=== PATIENT | male | born 1980 | race Caucasian/White ===

== ENCOUNTER 2023-10-26 22:39 | Emergency (ER) | payer SELFPAY ==
[~2023-10-26] VITALS: Ht 177.8 cm; Wt 68.0 kg
[2023-10-26 22:55] VITALS: BP 138/73; PULSE 54; RESP 18; TEMP 97.2; O2SAT 97
[2023-10-26] MEDS: FLUORESCEIN OPTH STRIP 1 MG OP ONE (23:40)
[2023-10-26] MEDS ORDERED: OFLO5SOL LEFT EYE (23:50)
== END 2023-10-26 23:57 | disposition home or self-care (01) ==
LOC: MED 22:39
DX: S05.02XA Injury of conjunctiva and corneal abrasion without foreign body, left eye, initial encounter (principal); Z79.899 Other long term (current) drug therapy; X58.XXXA Exposure to other specified factors, initial encounter; Y92.89 Other specified places as the place of occurrence of the external cause; Y93.89 Activity, other specified; Y99.8 Other external cause status
CPT/HCPCS: 99283